=== PATIENT | female | born 1955 | race Caucasian/White ===

== ENCOUNTER → 2016-11-10 | Outpatient (CLI) | payer MEDICARE, MEDICAID ==
[~2016-11-10] MED LIST: ALEN35TA32 PO; AMLO1CAP PO; BACL10TA PO; CALC-586 PO; CEPH-583 PO; FERR325T6 PO; LIDO30CR23 TOP; OXYC30TA PO; OXYM20TA13 PO; SULF1TAB42 PO; TRAZ-58 PO; VENL150C2 PO
--- NOTE | 2016-11-10 13:53 | DI ---
Indication: ITS.REASON: R22.42 LOCALIZED SWELLING; L97.921 NON PRESSURE ULCER PROCEDURE: US VENOUS DUPLEX, LOWER EXT LT: Encounter: Initial Comparison: January 03, 2016 Technique: Color Doppler duplex and grayscale sonographic imaging of the left lower extremity was performed. Findings: There is no evidence for acute deep venous thrombosis in the left thigh. Specifically, serial graded compression was performed from the inguinal ligament to the popliteal bifurcation, on the left thigh, demonstrating appropriate compressibility of the deep venous system. In addition, color and pulsed Doppler demonstrate appropriate spontaneous flow, variation with respiration, and augmentation with calf compression. At the ankle, normal flow is identified in the posterior tibial veins; these vessels are also normal in caliber. Impression: No evidence of acute DVT in the left lower limb. .
--- NOTE | 2016-11-10 15:04 | DI ---
Indication: ITS.REASON: R22.42 LOCALIZED SWELLING; L97.921 NON PRESSURE ULCER PROCEDURE: US ARTERIAL EXTREMITY LOWER LT: Technique: Grayscale color and duplex Doppler imaging was performed of the arterial tree of the left leg. Findings: LEFT LEG (cm/sec) Common Femoral 101 Superficial Femoral Proximal 104 Mid 138 Distal 104 Popliteal 87 BARBARA-prox 82 ROTARY PEEL OVEN TENDER-prox 69 BARBARA-dist 85 ROTARY PEEL OVEN TENDER-dist 53 Normal multiphasic waveforms seen. No vascular occlusion or flow velocity elevation. IMPRESSION: No hemodynamically significant stenosis. .
== END ==
LOC: IMA 12:29
PROVIDERS: ATTEND Internal Medicine
DX: R22.42 Localized swelling, mass and lump, left lower limb (principal); L97.321 Non-pressure chronic ulcer of left ankle limited to breakdown of skin

== ENCOUNTER → 2017-01-09 | Outpatient (CLI) | payer MEDICARE, MEDICAID ==
[~2017-01-09] MED LIST changes: +GADOBUTROL 10mMol/10ml INJECTION IV ONE; +SALINE FLUSH 10ml SYRINGE ONE
--- NOTE | 2017-01-09 16:38 | DI ---
Indication: ITS.REASON: M54.5 LOW BACK PAIN PROCEDURE: MRI LUMBAR SPINE W/WO CONTRAST: Encounter: Initial Comparison: MRI lumbar spine dated October 26, 2013 Technique: Multiplanar multisequence MR imaging of the lumbar spine was performed with and without contrast. Contrast: 7.5 mL Gadavist Findings: Alignment lumbar spine is stable with L3-L5 posterior spinal fusion and decompression. Posterior paraspinal fluid collection again noted without interval change. New inferior endplate deformity at L2. This has some slight edema. Severe degenerative endplate change again seen at L4-L5 with grade 1 anterolisthesis of L4 on L5. Atrophic left kidney. Segmental analysis: T12-L1: Mild disk bulging without significant central canal stenosis. Mild right neural foraminal stenosis. No significant left foraminal narrowing. L1-L2: No focal disk herniation or central canal stenosis. Mild degenerative facet change contributing to mild bilateral neural foraminal narrowing greater on the left. L2-L3: Degenerative facet hypertrophy and ligamentum flavum thickening combined with mild disk bulging causes mild to moderate central canal narrowing. Moderate right and severe left neural foraminal stenosis. Slightly worsened. L3-L4: Posterior decompression. No central disk herniation. No significant neural foraminal stenosis. L4-L5: Posterior decompression. No focal disk herniation. Degenerative facet disease anterolisthesis contributing to moderate right and mild left neural foraminal stenosis. This is stable. L5-S1: No focal disk herniation or central canal stenosis. No neural foraminal narrowing. No areas of concerning postcontrast enhancement. Impression: 1. New minimal inferior endplate deformity at L2 could represent an acute Schmorl's node. 2. Continued worsening in foraminal stenosis at L2-L3. .
== END ==
LOC: IMA 14:05
PROVIDERS: ATTEND Pain Medicine Pain Medicine
DX: M54.5 Low back pain (principal); M47.896 Other spondylosis, lumbar region; M43.16 Spondylolisthesis, lumbar region; M51.26 Other intervertebral disc displacement, lumbar region; N26.1 Atrophy of kidney (terminal)
CPT/HCPCS: 72158; A9585